=== PATIENT | male | born 1960 | race Caucasian/White ===

== ENCOUNTER 2018-05-16 12:33 | Outpatient (REF) | payer SELFPAY ==
[2018-05-16 22:27] LABS: Anion Gap 7.6 mmol/L (3-11); BUN 14 mg/dL (7-18); CO2 29.4 mmol/L (21.0-32.0); CREATININE 1.06 mg/dL (0.70-1.30); Calcium 9.4 mg/dL (8.5-10.1); Chloride 102 mmol/L (98-107); Cholesterol 235 mg/dL (50-200); Glucose 88 mg/dL (70-100); HDL Cholesterol 52 mg/dL (40-60); LDL CHOLESTEROL 169 mg/dL (<100); Potassium 4.8 mmol/L (3.5-5.1); Sodium 139 mmol/L (136-145); Triglyceride 120 mg/dL (30-150)
== END 2018-05-16 12:53 ==
LOC: NCHCN 12:33
PROVIDERS: PCP Internal Medicine; Visit Provider Internal Medicine
DX: R03.0 Elevated blood-pressure reading, without diagnosis of hypertension (principal); Z13.6 Encounter for screening for cardiovascular disorders
CPT/HCPCS: 80048; 80061; 83721

== ENCOUNTER 2019-07-10 09:14 | Outpatient (REF) | payer BC, SELFPAY ==
[2019-07-11 00:01] LABS: Anion Gap 10.5 mmol/L (3-11); BUN 17 mg/dL (7-18); CO2 27.5 mmol/L (21.0-32.0); CREATININE 1.04 mg/dL (0.70-1.30); Calculated LDL 81 mg/dL (<100); Chloride 102 mmol/L (98-107); Cholesterol 143 mg/dL (<200); Glucose 92 mg/dL (74-106); HDL Cholesterol 46 mg/dL (40-60); Potassium 4.3 mmol/L (3.5-5.1); Sodium 140 mmol/L (136-145); Triglyceride 83 mg/dL (<150)
== END 2019-07-10 09:34 ==
LOC: NCHCN 09:14
PROVIDERS: PCP Internal Medicine; Visit Provider Internal Medicine
DX: E78.5 Hyperlipidemia, unspecified (principal); I10 Essential (primary) hypertension
CPT/HCPCS: 80048; 80061

== ENCOUNTER 2019-10-18 17:37 | Outpatient (REF) | payer BC, SELFPAY ==
[2019-10-18 21:03] LABS: HCT 42.4 % (40.0-50.0); HGB 14.9 g/dL (13.5-17.5); Mean Corp. HGB Concentration 35.1 g/dL (32.0-36.0); Mean Corpuscular Hemoglobin 31.7 pg (27.0-33.0); Mean Corpuscular Volume 90.2 fL (80-95); Mean Platelet Volume 10.3 fL (8.0-11.0); Platelet Count 285 x1000/uL (130-400); White Blood Cell Count 8.39 k/cumm (4.4-10.8)
[2019-10-18 21:32] LABS: NT-proBNP 27 pg/mL (<300); TSH 2.11 uIU/mL (0.36-3.74)
== END 2019-10-18 17:57 ==
LOC: NCHCN 17:37
PROVIDERS: PCP Internal Medicine; Visit Provider Internal Medicine
DX: R06.09 Other forms of dyspnea (principal); I10 Essential (primary) hypertension
CPT/HCPCS: 85027; 83880; 84443

== ENCOUNTER 2020-08-03 08:03 | Outpatient (REF) | payer BC, SELFPAY ==
[2020-08-03 13:48] LABS: ALT 53 U/L (16-63); AST 44 U/L (15-37); Albumin 4.2 g/dL (3.4-5.0); Alkaline Phosphatase 87 U/L (46-116); Anion Gap 8.7 mmol/L (3-11); BUN 22 mg/dL (7-18); Bilirubin, Total 0.7 mg/dL (0.2-1.0); CO2 28.3 mmol/L (21.0-32.0); CREATININE 1.1 mg/dL (0.70-1.30); Calcium 9.1 mg/dL (8.5-10.1); Calculated LDL 82 mg/dL (<100); Chloride 103 mmol/L (98-107); Cholesterol 151 mg/dL (<200); Glucose 88 mg/dL (74-106); HDL Cholesterol 52 mg/dL (40-60); Potassium 4.2 mmol/L (3.5-5.1); Sodium 140 mmol/L (136-145); Total Protein 7.4 g/dL (6.4-8.2); Triglyceride 87 mg/dL (<150)
== END 2020-08-03 08:04 | disposition home or self-care (01) ==
LOC: NCHCN 08:03
PROVIDERS: PCP Internal Medicine; Visit Provider Internal Medicine
DX: I10 Essential (primary) hypertension (principal); E78.5 Hyperlipidemia, unspecified
CPT/HCPCS: 80053; 80061

== ENCOUNTER 2020-10-09 17:42 | Outpatient (REF) | payer BC, SELFPAY ==
[2020-10-09 21:21] LABS: ALT 38 U/L (16-63); AST 30 U/L (15-37); Albumin 4.1 g/dL (3.4-5.0); Alkaline Phosphatase 93 U/L (46-116); Bilirubin, Total 0.5 mg/dL (0.2-1.0); Total Protein 7.3 g/dL (6.4-8.2)
[2020-10-09 21:29] LABS: Bilirubin, Direct 0.1 mg/dL (0.0-0.2)
[2020-10-12 10:14] LABS: HBs Antibody, Quant <3.1 mIU/mL (See Note); Hepatitis B Surface Ab Negative (See Note)
[2020-10-12 10:32] LABS: Hepatitis B Surface Ag Negative (Negative)
[2020-10-12 10:36] LABS: Hepatitis C Ab w Rflx HCV PCR Negative (Negative)
== END 2020-10-09 17:43 | disposition home or self-care (01) ==
LOC: NCHCN 17:42
PROVIDERS: PCP Internal Medicine; Visit Provider Internal Medicine
DX: R79.89 Other specified abnormal findings of blood chemistry (principal)
CPT/HCPCS: 80076; 86706; 86803; 87340

== ENCOUNTER 2021-05-06 21:28 | Outpatient (REF) | payer BC, SELFPAY ==
[2021-05-08 19:25] LABS: COVID-19 RT-PCR UVMMC Result Indeterminate (Negative)
== END 2021-05-06 21:29 | disposition home or self-care (01) ==
LOC: NCHCN 21:28
PROVIDERS: PCP Internal Medicine; Visit Provider Internal Medicine
DX: Z20.822 Contact with and (suspected) exposure to COVID-19 (principal)
CPT/HCPCS: U0003

== ENCOUNTER 2021-08-11 13:29 | Outpatient (REF) | payer BC, SELFPAY ==
[2021-08-11 16:30] LABS: ALT 47 U/L (16-63); AST 44 U/L (15-37); Albumin 4.5 g/dL (3.4-5.0); Alkaline Phosphatase 83 U/L (46-116); Anion Gap 12.4 mmol/L (3-11); BUN 21 mg/dL (7-18); Bilirubin, Total 0.6 mg/dL (0.2-1.0); CO2 24.6 mmol/L (21.0-32.0); Calcium 9.1 mg/dL (8.5-10.1); Chloride 102 mmol/L (98-107); Glucose 90 mg/dL (74-106); Potassium 4.4 mmol/L (3.5-5.1); Sodium 139 mmol/L (136-145); Total Protein 7.6 g/dL (6.4-8.2)
[2021-08-11 22:24] LABS: PSA, Screening 0.3 ng/mL (<=4.5)
== END 2021-08-11 13:30 | disposition home or self-care (01) ==
LOC: NCHCN 13:29
PROVIDERS: PCP Internal Medicine; Visit Provider Internal Medicine
DX: I10 Essential (primary) hypertension (principal); Z12.5 Encounter for screening for malignant neoplasm of prostate
CPT/HCPCS: 80053; 84153

== ENCOUNTER 2022-05-04 09:02 | Outpatient (REF) | payer BC, SELFPAY ==
[2022-05-04 14:43] LABS: ALT 40 U/L (16-63); AST 38 U/L (15-37); Alkaline Phosphatase 85 U/L (46-116); Anion Gap 8.2 mmol/L (3-11); BUN 17 mg/dL (7-18); Bilirubin, Total 0.5 mg/dL (0.2-1.0); CO2 26.8 mmol/L (21.0-32.0); CREATININE 1.1 mg/dL (0.70-1.30); Calcium 8.9 mg/dL (8.5-10.1); Calculated LDL 109 mg/dL (<100); Chloride 104 mmol/L (98-107); Cholesterol 187 mg/dL (<200); Glucose 102 mg/dL (74-106); HDL Cholesterol 55 mg/dL (40-60); Potassium 4.2 mmol/L (3.5-5.1); Sodium 139 mmol/L (136-145); Total Protein 7.3 g/dL (6.4-8.2); Triglyceride 118 mg/dL (<150)
== END 2022-05-04 09:03 | disposition home or self-care (01) ==
LOC: NCHCN 09:02
PROVIDERS: PCP Internal Medicine; Visit Provider Internal Medicine
DX: E78.5 Hyperlipidemia, unspecified (principal); R79.89 Other specified abnormal findings of blood chemistry
CPT/HCPCS: 80053; 80061

== ENCOUNTER 2023-03-20 14:05 | Outpatient (REF) | payer BC, SELFPAY ==
[2023-03-20 14:55] LABS: HGB 14.5 g/dL (13.5-17.5); MCH 31.7 pg (27.0-33.0); MCHC 34.5 % (32.0-36.0); MCV 92 fL (80-95); MPV 10.3 fL (8.0-11.0); Platelet Count 258 10^3/uL (130-400); RBC 4.58 10^6/uL (4.36-5.78); RDW 13.1 % (11.8-14.1); RDW-SD 43.9 fL
[2023-03-20 15:02] LABS: Iron 112 ug/dL (65-175); Total Iron Binding Capacity 260 ug/dL (250-450); Transferrin Sat 43 % (20-55)
[2023-03-20 15:14] LABS: ALT 39 U/L (16-63); AST 44 U/L (15-37); Alkaline Phosphatase 83 U/L (46-116); Anion Gap 5.5 mmol/L (3-11); BUN 18 mg/dL (7-18); Bilirubin, Total 0.6 mg/dL (0.2-1.0); CO2 30.5 mmol/L (21.0-32.0); Calcium 9.5 mg/dL (8.5-10.1); Chloride 100 mmol/L (98-107); Estimated GFR 84.57 (mL/min/1.73m2); Ferritin 114 ng/mL (26-388); Glucose 98 mg/dL (74-106); Potassium 4.5 mmol/L (3.5-5.1); Sodium 136 mmol/L (136-145); Total Protein 7.2 g/dL (6.4-8.2)
== END 2023-03-20 14:06 | disposition home or self-care (01) ==
LOC: NCHCN 14:05
PROVIDERS: PCP Internal Medicine; Visit Provider Internal Medicine
DX: E78.5 Hyperlipidemia, unspecified (principal); I10 Essential (primary) hypertension; R79.89 Other specified abnormal findings of blood chemistry; E66.9 Obesity, unspecified
CPT/HCPCS: 80053; 85027; 82728; 83540; 83550

== ENCOUNTER 2024-04-03 13:39 | Outpatient (REF) | payer OTHER, SELFPAY ==
--- OUTSIDE RECORDS SUMMARY | 2024-04-03 13:42 | XMS_ITS | Encounter Summary ---
Author Organization [facility] Address [address] [place] [address] Care Team Providers Care Environmental Health Nurse Name Role Phone Jorje Barnett MD Primary Care Provider Miriam Ponce PIE TOPPER Unavailable [phone] Encounter Details Date Type Department Care Team (Late st Contact Info) Description 08/11/2021 Lab Requisition [facility] Pathology & Laboratory Medicine - [address] [address] Outr Resulting Lab, Provider Social History Tobacco Use Types Packs/Day Years Used Date Smoking Tobacco: Unknown Smokeless Tobacco: Former Chew Quit: 1986 Interpersonal Safety Answer Date Record ed Physically Hurt Never 12/08/2019 Verbally Threaten Not on file 12/08/2019 Sex and Gender Information Value Date Recorded Sex Assigned at Not on file Legal Sex Male 18:11 EST Gender Identity Male 03/11/2019 14:52 EST Sexual Orientation Not on file documented as of this encounter Plan of Treatment Not on file documented as of this encounter Procedures Procedure Name Priority Date/Time Associated Diagnosis Comments PSA TOTAL, DIAGNOSTIC Routine 08/11/2021 9:00 EDT documented in this encounter Results * PSA TOTAL, DIAGNOSTIC (08/11/2021 9:00 EDT) PSA 0.3 <=4.5 ng/mL 08/11/2021 22:19 EDT [facility] Blood VENOUS BLOOD / Unknown 08/11/2021 9:00 EDT 08/11/2021 21:20 EDT Narrative [facility] - 08/11/2021 22:19 EDT NOTE: Serum PSA concentration should not be interpreted as absolute evidence for the presence or absence of malignant disease. Assayed on Siemens ADVIA Liquid Enginesaur XPT using chemiluminescent technology.??Values obtained by using different assay methods cannot be used interchangeably. us Provider Outr Resulting Lab CHEMISTRY & BLOOD GA S ORDERABLES Final Result Performing Organization Address City/State/[facility] Co de Phone Number [facility] [address] [place] [address] documented in this encounter Visit Diagnoses Not on filedocumented in this encounter Care Teams Environmental Health Nurse Relationship Specialty Start Date End Date Jorje Barnett MD PCP - General 03/11/19 Miriam Sharif NP [address] [phone] Physician Sports Umpire Psychiatry 01/31/20 12/21/21 documented as of this encounter
--- OUTSIDE RECORDS SUMMARY | 2024-04-03 13:42 | XMS_ITS | Clinical Summary ---
Author Organization [facility] Address [address] [place] [address] Care Team Providers Care Die Casting Machine Setter Name Role Phone Jorje Barnett MD Primary Care Provider Unav ailable Allergies No known active allergies Medications oxygen-air delivery systems (HORIZON NASAL CPAP SYSTEM MISC) by misc (non-drug; combo route) route. Active atorvastatin (LIPITOR) 20 mg tablet TK 1 T PO D HS 0 Active Magnesium Oxide 420 mg tablet Take 420 mg by mouth 2 times daily. 180 Tab 4 0 Active busPIRone (BUSPAR) 15 mg tablet TAKE 1 TABLET BY MOUTH THREE TIMES A DAY. 270 Tab 0 Active Vitamin B Complex 100 #3-Herbs 100 mg tablet 1 tab(s) orally Daily 9 Active Yukxy-6-LGG-EPA- Fish Oil (FISH OIL) 1,000 mg (120 mg-180 mg) capsule 1 cap(s) orally BID 9 Active hydroCHLOROthiaz camilla (HYDRODIURIL) 25 mg tablet TK 1 T PO D 0 Active multivitamin (THERAGRAN) per tablet 1 tab(s) orally once a day Active amLODIPine (NORVASC) 5 mg tablet TK 1 T PO D 0 Active ARIPiprazole (ABILIFY) 10 mg tabletIndication s:Recurrent major depressive disorder, remission status unspecified (HCC-CMS) Take 1 Tab by mouth daily for 90 days. INCREASE 90 Tab 0 Active venlafaxine (EFFEXOR-XR) 150 mg XR capsule TAKE 1 CAPSULE DAILY 90 Cap 0 Active venlafaxine (EFFEXOR-XR) 75 mg XR capsule TAKE ONE CAPSULE BY MOUTH DAILY 30 Cap 0 Active Active Problems Problem Noted Date Diagnosed Date Recurrent major depressive disorder ([facility]) Generalized anxiety disorder 06/26/2019 Difficulty with family 06/26/2019 Anxiety 03/26/2019 Family History Medical History Relation Comments No Known Brother Alcohol Abuse Sister 1 Mental Illness Sister 1 Alcohol Abuse Sister 2 Relation Status Comments Brother Sister 1 Sister 2 Social History Tobacco Use Types Packs/Day Years Used Date Smoking Tobacco: Unknown Smokeless Tobacco: Former Chew Quit: 1986 Interpersonal Safety Answer Date Record ed Physically Hurt Never 12/08/2019 Verbally Threaten Not on file 12/08/2019 Sex and Gender Information Value Date Recorded Sex Assigned at Not on file Legal Sex Male 18:11 EST Gender Identity Male 03/11/2019 14:52 EST Sexual Orientation Not on file Obstetrics History Plan of Treatment Health Maintenance Due Date Last Done Comments COVID-19 Vaccine (2023-25 season) 2024 RSV Immunization ( o r 60+ Years) (1 - 1-dose 75+ series) 12/01/2034 Hepatitis C Screen Completed 10/09/2020 Procedures Procedure Name Priority Date/Time Associated Diagnosis Comments HEPATITIS C AB W REFLEX TO HCV RNA BY PCR Routine 10/09/2020 16:20 EDT from Last 3 Months or Most Recently Relevant to Health Maintenance Results * HEPATITIS C AB W REFLEX TO HCV RNA BY PCR (10/09/2020 16:20 EDT) Hep C Antibody Negative Negative 10/12/2020 10:32 EDT [facility] Blood VENOUS BLOOD / Unknown 10/09/2020 16:20 EDT 10/11/2020 15:48 EDT us Provider Outr Resulting Lab CHEMISTRY & BLOOD GA S ORDERABLES Final Result [facility] [address] [place] [address] from Last 3 Months or Most Recently Relevant to Health Maintenance Care Teams Die Casting Machine Setter Relationship Specialty Start Date End Date Jorje Barnett MD PCP - General 03/11/19
--- OUTSIDE RECORDS SUMMARY | 2024-04-03 13:42 | XMS_ITS | Encounter Summary ---
Author Organization [facility] Address [address] [place] [address] Care Team Providers Care Tape Calender Name Role Phone Jorje Barnett MD Primary Care Provider Miriam Ponce BUDGET DIRECTOR Unavailable Encounter Details Date Type Department Care Team (Late st Contact Info) Description 05/07/2021 Lab Requisition [facility] Pathology & Laboratory Medicine - [address] [address] Outr Resulting Lab, Provider Social History Tobacco [...] Procedure Name Priority Date/Time Associated Diagnosis Comments ZZCOVID-19 TEST [facility] PCR Today 05/06/2021 13:15 EST COVID-19 TESTING Routine 05/06/2021 13:1 5 EST documented in this encounter Results * COVID-19 TEST [facility] PCR (05/06/2021 13:15 EST) Swab 05/06/2021 13:1 5 EST 05/07/2021 20:34 EST us Provider Outr Resulting Lab MICROBIOLOGY - GENER AL ORDERABLES Final Result Performing Organization Address City/[facility]/ZIP Co de Phone Number [facility] [address] [place] [address] * COVID-19 TESTING (05/06/2021 13:15 EST) COVID-19 rt-PCR Result Indeterminate Negative 05/08/2021 19:19 EST [facility] Comment:This is an appended report. These results have been appended to a previously preliminary verified report. Performing Lab [place] 05/08/2021 19:19 EST [facility] Swab 05/06/2021 13:1 5 EST 05/07/2021 20:34 EST us Provider Outr Resulting Lab MICROBIOLOGY - GENER AL ORDERABLES Final Result Performing Organization Address [facility] Co de Phone Number [facility] [address] [place] [address] documented in this encounter Visit Diagnoses Not on filedocumented in this encounter Care Teams Tape Calender Relationship Specialty Start Date End Date Jorje Barnett MD PCP - General 03/11/19 Miriam Sharif NP [address] [place] [phone] Physician Fitter Helper Psychiatry 01/31/20 12/21/21 documented as of this encounter
--- OUTSIDE RECORDS SUMMARY | 2024-04-03 13:42 | XMS_ITS | Referral Summary ---
Author Organization [facility] Address [address] [place] [address] Care Team Providers Care Records Management Analyst Name Role Phone Jorje Barnett MD Primary [...] tablet 1 tab(s) orally Daily 9 Active Njyre-0-TCY-EPA- Fish Oil (FISH OIL) 1,000 mg (120 [...] Date Diagnosed Date Recurrent major depressive disorder (HCC-[facility]) Generalized anxiety disorder 06/26/2019 Difficulty with family 06/26/2019 Anxiety 03/26/2019 Social History Tobacco Use Types Packs/Day Years Used Date Smoking Tobacco: Unknown Smokeless Tobacco: Former Chew Quit: 1986 Interpersonal Safety Answer Date Record ed Physically Hurt Never 12/08/2019 Verbally Threaten Not on file 12/08/2019 Sex and Gender Information Value Date Recorded Sex Assigned at Not on file Legal Sex Male 18:11 EST Gender Identity Male 03/11/2019 14:52 EST Sexual Orientation Not on file Plan of Treatment Not on file Procedures Procedure Name Priority Date/Time Associated Diagnosis Comments HEPATITIS C AB W REFLEX TO HCV RNA BY PCR Routine 10/09/2020 16:20 EDT from Last 3 Months or Most Recently Relevant to Health Maintenance Results * HEPATITIS C AB W REFLEX TO HCV RNA BY PCR (10/09/2020 16:20 EDT) Hep C Antibody Negative Negative 10/12/2020 10:32 EDT [facility] Blood VENOUS BLOOD / Unknown 10/09/2020 16:20 EDT 10/11/2020 15:48 EDT us Provider Outr Resulting Lab CHEMISTRY & BLOOD GA S ORDERABLES Final Result [facility] [address] [place] [id number] from Last 3 Months or Most Recently Relevant to Health Maintenance Care Teams Records Management Analyst Relationship Specialty Start Date End Date Jorje Barnett MD PCP - General 03/11/19
--- OUTSIDE RECORDS SUMMARY | 2024-04-03 13:42 | XMS_ITS | Encounter Summary ---
Author Organization [facility] Address [address] [place] [address] Care Team Providers Care Bracelet And Brooch Maker Name Role Phone Jorje Barnett MD Primary Care Provider Miriam Ponce PROGRAM THERAPIST Unavailable [phone] Encounter Details Date Type Department Care Team (Late st Contact Info) Description 10/10/2020 Lab Requisition [facility] Pathology & Laboratory Medicine - [address] [address] Outr Resulting Lab, Provider Social History Tobacco [...] RNA BY PCR Routine 10/09/2020 16:20 EDT HEPATITIS B SURFACE ANTIBODY Routine 10/09/2020 16:20 EDT HEPATITIS B SURFACE ANTIGEN Routine 10/09/2020 16:20 EDT documented in this encounter Results * HEPATITIS B SURFACE ANTIBODY (10/09/2020 16:20 EDT) Hep B Surface Ab, Quantitative <3.1 See Note mIU/mL 10/12/2020 10:09 EDT [facility] Comment: Reference Range for Hep B Surface Ab, Quant: Positive: >= 10.0 mIU/mL Negative: ??< 10.0 mIU/mL Patient is presumed to not be immune to infection with Hepatitis B Virus. Hep B Surface Ab, Qualitative Negative See Note 10/12/2020 10:09 EDT [facility] Comment: Reference Range for Hep B Surface Ab, Qual: Unvaccinated: ??Negative Vaccinated: ??Positive Blood VENOUS BLOOD / Unknown 10/09/2020 16:20 EDT 10/11/2020 15:48 EDT us Provider Outr Resulting Lab CHEMISTRY & BLOOD GA S ORDERABLES Final Result Performing Organization Address [facility] Co de Phone Number [facility] [address] [place] [address] * HEPATITIS B SURFACE ANTIGEN (10/09/2020 16:20 EDT) Hep B Surface Ag Negative Negative 10/12/2020 10:28 EDT [facility] Blood VENOUS BLOOD / Unknown 10/09/2020 16:20 EDT 10/11/2020 15:48 EDT us Provider Outr Resulting Lab CHEMISTRY & BLOOD GA S ORDERABLES Final Result Performing Organization Address City/[facility]/ZIP Co de Phone Number [facility] [address] [place] [address] * HEPATITIS C AB W REFLEX TO HCV RNA BY PCR (10/09/2020 16:20 EDT) Hep C Antibody Negative Negative 10/12/2020 10:32 EDT [facility] Blood VENOUS BLOOD / Unknown 10/09/2020 16:20 EDT 10/11/2020 15:48 EDT us Provider Outr Resulting Lab CHEMISTRY & BLOOD GA S ORDERABLES Final Result [facility] [address] [place] [address] documented in this encounter Visit Diagnoses Not on filedocumented in this encounter Care Teams Bracelet And Brooch Maker Relationship Specialty Start Date End Date Jorje Barnett MD PCP - General 03/11/19 Miriam Sharif NP [address] [phone] Physician Application Integration Specialist Psychiatry 01/31/20 12/21/21 documented as of this encounter
--- OUTSIDE RECORDS SUMMARY | 2024-04-03 13:42 | XMS_ITS | Encounter Summary ---
Author Organization [facility] Address [address] [place] [address] Care Team Providers Care Sales And Catering Coordinator Name Role Phone Jorje Barnett MD Primary Care Provider Unav ailable Miriam Sharif CHEMICAL PATHOLOGIST Unavailable [phone] Reason for Visit * Reason Comments Other Encounter Details Date Type Department Care Team (Late st Contact Info) Description 07/05/2020 Refill [facility] Family Psychiatry [address] [place] [address] Miriam Sharif NP 82 [facility] [address] [place] [phone] Other Social History Tobacco Use Types Packs/Day Years [...] on file documented as of this encounter Visit Diagnoses Not on filedocumented in this encounter Care Teams Sales And Catering Coordinator Relationship Specialty Start Date End Date Jorje Barnett MD PCP - General 03/11/19 Miriam Sharif NP 82 [facility] [address] [place] [phone] Physician Executive Community Planning Psychiatry 01/31/20 12/21/21 documented as of this encounter
--- OUTSIDE RECORDS SUMMARY | 2024-04-03 13:43 | XMS_ITS | Encounter Summary ---
Author Organization [facility] Address [address] [place] [address] Care Team Providers Care Environment Artist Name Role Phone Jorje Barnett MD Primary Care Provider Unav ailable Reason for Visit * Reason Onset Date Comments Medications Refill 11/26/2019 buspar Encounter Details Date Type Department Care Team (Late st Contact Info) Description 11/26/2019 Refill [facility] Family Psychiatry [address] [place], [place] [phone] Riya Urrutia RN Medications Refill (buspar) Social History Tobacco Use Types Packs/Day Years [...] on file documented as of this encounter Miscellaneous Notes * Telephone Encounter - Sonja Boateng - 12/05/2019 1049 EDT 12/05/19 LM to schedule with Miriam * Telephone Encounter - Sonja Boateng - 11/29/2019 0829 EDT 11/28/19 spoke to pt's . Pt to call back to schedule appt. * Telephone Encounter - Riya Urrutia RN - 11/26/2019 0833 EDT Tele visit 09/25/19 No future visits scheduled buspirone 15 mg, take 1 tab by mouth 3 times daily Last filled 09/17/19 documented in this encounter Plan of Treatment Not on file documented as of this encounter Visit Diagnoses Not on filedocumented in this encounter Care Teams Environment Artist Relationship Specialty Start Date End Date Jorje Barnett MD PCP - General 03/11/19 documented as of this encounter
--- OUTSIDE RECORDS SUMMARY | 2024-04-03 13:43 | XMS_ITS | Encounter Summary ---
Author Organization [facility] Address [address] [place] [address] Care Team Providers Care Master In Chancery Name Role Phone Jorje Barnett MD Primary Care Provider Unav ailable Reason for Visit * Reason Comments Other Encounter Details Date Type Department Care Team (Late st Contact Info) Description 10/19/2019 Refill [facility] Family Psychiatry [address] [place] [address] Miriam Sharif NP 82 [facility] [address] [place] [phone] Other Social History Tobacco Use Types Packs/Day Years Used Date Smoking Tobacco: Unknown Smokeless Tobacco: Former Chew Quit: 1986 Sex and Gender Information Value Date Recorded Sex Assigned at Not on file Legal Sex Male 18:11 EST Gender Identity Male 03/11/2019 14:52 EST Sexual Orientation Not on file documented as of this encounter Ordered Prescriptions Prescription Sig Dispense Quantity Refills Last Filled Start Date End Date venlafaxine (EFFEXOR-XR) 150 mg XR capsule TAKE 1 CAPSULE DAILY 90 Cap 10/21/2019 documented in this encounter Miscellaneous Notes * Telephone Encounter - Riya Urrutia RN - 10/21/2019 1110 EDT Tele visit 09/25/19 Scheduled for 11/05/19 Venlafaxine ER 150 mg , take 1 cap by mouth daily Last filled 08/13/19 patient of Miriam's Approved and escribed by Gregg Foreman [employer] documented in this encounter Plan of Treatment Not on file documented as of this encounter Visit Diagnoses Not on filedocumented in this encounter Discontinued Medications Medication Sig Discontinue Reason Start Date End Da te venlafaxine (EFFEXOR-XR) 150 mg XR capsule Take 1 Cap by mouth daily for 90 days. 08/13/2019 10/21/2019 documented as of this encounter Care Teams Master In Chancery Relationship Specialty Start Date End Date Jorje Barnett MD PCP - General 03/11/19 documented as of this encounter
--- OUTSIDE RECORDS SUMMARY | 2024-04-03 13:43 | XMS_ITS | Encounter Summary ---
Author Organization [facility] Address [address] [place] [address] Care Team Providers Care Speech Assistant Name Role Phone Jorje Barnett MD Primary Care Provider Unav ailable Reason for Visit * Reason Comments Medication Management Encounter Details Date Type Department Care Team (Late st Contact Info) Description 06/26/2019 17:30 EST Office Visit [facility] Family Psychiatry [address] [place] [address] Miriam Sharif, FER 82 [facility] [address] [place] [phone] Recurrent major depressive disorder, remission status unspecified (HCC-CMS) (Primary Dx); Generalized anxiety disorder; Difficulty with family Social History Tobacco Use Types Packs/Day Years Used Date Smoking Tobacco: Never Smokeless Tobacco: Never Sex and Gender Information Value Date Recorded Sex Assigned at Not on file Legal Sex Male 18:11 EST Gender Identity Male 03/11/2019 14:52 EST Sexual Orientation Not on file documented as of this encounter Ordered Prescriptions Prescription Sig Dispense Quantity Refills Last Filled Start Date End Date Magnesium Oxide 420 mg tablet Take 420 mg by mouth 2 times daily. 180 Tab 4 06/26/2019 ARIPiprazole (ABILIFY) 5 mg tabletIndications:R ecurrent major depressive disorder, remission status unspecified (HCC-CMS) Take 1 Tab by mouth daily for 30 days. 30 Tab 06/26/2019 07/22/2019 documented in this encounter Miscellaneous Notes * Addendum Note - Miriam Sharif, IVAN - 06/26/2019 1730 ESTAddended by: MIRIAM SHARIF on: 06/26/2019 18:56 Modules accepted: Orders documented in this encounter Plan of Treatment Not on file documented as of this encounter Visit Diagnoses Diagnosis Recurrent major depressive disorder, remission status unspecified ([facility])- Primary Generalized anxiety disorder Difficulty with family Unspecified family circumstance documented in this encounter Historical Medications * This list may reflect changes made after this encounter. atorvastatin (LIPITOR) 20 mg tablet TK 1 T PO D HS 06/03/2019 amLODIPine (NORVASC) 10 mg tablet TK 1 T PO D 06/17/2019 09/24/2019 added in this encounter Care Teams Speech Assistant Relationship Specialty Start Date End Date Jorje Barnett MD PCP - General 03/11/19 documented as of this encounter
--- OUTSIDE RECORDS SUMMARY | 2024-04-03 13:43 | XMS_ITS | Encounter Summary ---
Author Organization [facility] Address [address] [place] [address] Care Team Providers Care Forging Machine Hand Name Role Phone Jorje Barnett MD Primary Care Provider Unav ailable Miriam Sharif KILN LABOURER Unavailable [phone] Reason for Visit * Reason Comments Other Encounter Details Date Type Department Care Team (Late st Contact Info) Description 02/15/2020 Refill [facility] Family Psychiatry [address] [place] [address] Miriam Sharif, FER 82 [facility] [address] [place] [phone] Other Social History Tobacco Use Types Packs/Day [...] Filled Start Date End Date venlafaxine (EFFEXOR-XR) 75 mg XR capsule TAKE ONE CAPSULE BY MOUTH DAILY 30 Cap 02/17/2020 documented in this encounter Miscellaneous Notes * Telephone Encounter - Dolores Ramachandran RN - 02/17/2020 0813 EDT Venlafaxine CR 75mg cap, take 1 cap daily with a 150mg Last OV canceled Nothing future scheduled [facility] documented in this encounter Plan of Treatment Not on file documented as of this encounter Visit Diagnoses Not on filedocumented in this encounter Discontinued Medications Medication Sig Discontinue Reason Start Date End Da te venlafaxine (EFFEXOR-XR) 75 mg XR capsule TAKE 1 CAPSULE BY MOUTH ONCE DAILY WITH 150MG CAPSULE 12/30/2019 02/17/2020 documented as of this encounter Care Teams Forging Machine Hand Relationship Specialty Start Date End Date Jorje Barnett MD PCP - General 03/11/19 Miriam Sharif NP [address] [phone] Physician Seat Trimmer Psychiatry 01/31/20 12/21/21 documented as of this encounter
--- OUTSIDE RECORDS SUMMARY | 2024-04-03 13:43 | XMS_ITS | Encounter Summary ---
Author Organization [facility] Address [address] [place] [address] Care Team Providers Care Manual Arts Therapy Teacher Name Role Phone Jorje Barnett MD Primary Care Provider Unav ailable Encounter Details Date Type Department Care Team ([facility] st Contact Info) Description 05/27/2019 Orders Only [facility] Family Psychiatry [address] [place], [place] [phone] Miriam Sharif NP 82 [facility] [address] [place] [phone] Social History Tobacco Use Types Packs/Day Years Used Date Smoking Tobacco: Never Smokeless Tobacco: Never Sex and Gender Information Value Date Recorded Sex Assigned at Not on file Legal Sex Male 18:11 EST Gender Identity Male 03/11/2019 14:52 EST Sexual Orientation Not on file documented as of this encounter Ordered Prescriptions Prescription Sig Dispense Quantity Refills Last Filled Start Date End Date venlafaxine (EFFEXOR XR) 75 mg XR capsule Take 1 Cap by mouth daily for 30 days. 30 Cap 05/27/2019 09/25/2019 venlafaxine (EFFEXOR XR) 150 mg XR capsule Take 1 Cap by mouth daily for 30 days. 30 Cap 05/27/2019 07/15/2019 documented in this encounter Plan of Treatment Not on file documented as of this encounter Visit Diagnoses Not on filedocumented in this encounter Discontinued Medications Medication Sig Discontinue Reason Start Date End Da te venlafaxine (EFFEXOR XR) 150 mg XR capsule Take 150 mg by mouth daily. Reorder 05/27/2019 venlafaxine (EFFEXOR XR) 75 mg XR capsule Take 75 mg by mouth daily. Reorder 05/27/2019 documented as of this encounter Care Teams Manual Arts Therapy Teacher Relationship Specialty Start Date End Date Jorje Barnett MD PCP - General 03/11/19 documented as of this encounter
--- OUTSIDE RECORDS SUMMARY | 2024-04-03 13:43 | XMS_ITS | Encounter Summary ---
Author Organization [facility] Address [address] [place] [address] Care Team Providers Care Oven Laborer Name Role Phone Jorje Barnett MD Primary Care Provider Unav ailable Miriam Sharif DEVELOPER ADVISOR Unavailable Reason for Visit * Reason Comments Other Encounter Details Date Type Department Care Team (Late st Contact Info) Description 07/21/2019 Refill [facility] [address] [place] [address] Miriam Sharif NP 82 [facility] [address] [place] [phone] Other Social History Tobacco Use Types Packs/Day Years Used Date Smoking Tobacco: Never Smokeless Tobacco: Never Sex and Gender Information Value Date Recorded Sex Assigned at Not on file Legal Sex Male 18:11 EST Gender Identity Male 03/11/2019 14:52 EST Sexual Orientation Not on file documented as of this encounter Ordered Prescriptions Prescription Sig Dispense Quantity Refills Last Filled Start Date End Date ARIPiprazole (ABILIFY) 5 mg tabletIndications: Recurrent major depressive disorder, remission status unspecified ([facility]) TAKE 1 TABLET BY MOUTH ONCE DAILY 30 Tab 07/22/2019 08/27/2019 documented in this encounter Miscellaneous Notes * Telephone Encounter - Maureen Recinos - 07/21/2019 1818 EDT Miriam's patient documented in this encounter Plan of Treatment Not on file documented as of this encounter Visit Diagnoses Diagnosis Recurrent major depressive disorder, remission status unspecified ([facility]) documented in this encounter Discontinued Medications Medication Sig Discontinue Reason Start Date End Da te ARIPiprazole (ABILIFY) 5 mg tabletIndications:Recurre nt major depressive disorder, remission status unspecified (HCC-CMS) Take 1 Tab by mouth daily for 30 days. 06/26/2019 07/22/2019 documented as of this encounter Care Teams Oven Laborer Relationship Specialty Start Date End Date Jorje Barnett MD PCP - General 03/11/19 Miriam Sharif NP [address] [phone] Physician Peripheral Vascular Tech Psychiatry 01/31/20 12/21/21 documented as of this encounter
--- OUTSIDE RECORDS SUMMARY | 2024-04-03 13:43 | XMS_ITS | Encounter Summary ---
Author Organization [facility] Address [address] [place] [address] Care Team Providers Care Web Marketing Strategist Name Role Phone Jorje Barnett MD Primary Care Provider Unav ailable Miriam Sharif COMMUNICATIONS MANAGER Unavailable [phone] Reason for Visit * Reason Comments Other Encounter Details Date Type Department Care Team ([facility] st Contact Info) Description 09/17/2019 Refill [facility] [address] [place] [address] Miriam Sharif NP 82 [facility] [address] [place] [phone] Other Social History Tobacco Use Types Packs/Day Years Used Date Smoking Tobacco: Never Smokeless Tobacco: Never Sex and Gender Information Value Date Recorded Sex Assigned at Not on file Legal Sex Male 18:11 EST Gender Identity Male 03/11/2019 14:52 EST Sexual Orientation Not on file documented as of this encounter Ordered Prescriptions Prescription Sig Dispense Quantity Refills Last Filled Start Date End Date busPIRone (BUSPAR) 15 mg tablet TAKE 1 TABLET BY MOUTH THREE TIMES A DAY. 270 Tab 09/17/2019 documented in this encounter Miscellaneous Notes * Telephone Encounter - Maureen Recinos - 09/17/2019 0942 EDT Miriam's patient documented in this encounter Plan of Treatment Not on file documented as of this encounter Visit Diagnoses Not on filedocumented in this encounter Discontinued Medications Medication Sig Discontinue Reason Start Date End Da te busPIRone (BUSPAR) 15 mg tablet Take 30 mg by mouth 3 times daily as needed. 09/17/2019 documented as of this encounter Care Teams Web Marketing Strategist Relationship Specialty Start Date End Date Jorje Barnett MD PCP - General 03/11/19 Miriam Sharif NP [address] [phone] Physician Sole Stapler Welt Psychiatry 01/31/20 12/21/21 documented as of this encounter
--- OUTSIDE RECORDS SUMMARY | 2024-04-03 13:43 | XMS_ITS | Encounter Summary ---
Author Organization [facility] Address [address] [place] [address] Care Team Providers Care Feather Baler Name Role Phone Jorje Barnett MD Primary Care Provider Unav ailable Encounter Details Date Type Department Care Team (Late st Contact Info) Description 09/24/2019 Abstract [facility] [address] [place] [address] Tristen Brooks PA-C [address] [place] [address] [address] [place] [address] Social History Tobacco Use Types Packs/Day Years [...] Discontinue Reason Start Date End Da te amLODIPine (NORVASC) 10 mg tablet TK 1 T PO D Duplicate order 06/17/2019 09/24/2019 documented as of this encounter Historical Medications * This list may reflect changes made after this encounter. amLODIPine (NORVASC) 5 mg tablet TK 1 T PO D 08/19/2019 multivitamin (THERAGRAN) per tablet 1 tab(s) orally once a day hydroCHLOROthiazi de (HYDRODIURIL) 25 mg tablet TK 1 T PO D 08/26/2019 Jayfs-8-EQR-EPA-F alejandro Oil (FISH OIL) 1,000 mg (120 mg-180 mg) capsule 1 cap(s) orally BID 08/30/2018 Vitamin B Complex 100 #3-Herbs 100 mg tablet 1 tab(s) orally Daily 08/30/2018 added in this encounter Care Teams Feather Baler Relationship Specialty Start Date End Date Jorje Barnett MD PCP - General 03/11/19 documented as of this encounter
--- OUTSIDE RECORDS SUMMARY | 2024-04-03 13:43 | XMS_ITS | Encounter Summary ---
Author Organization [facility] Address [address] [place] [address] Care Team Providers Care Perinatology Physician Name Role Phone Jorje Barnett MD Primary Care Provider Unav ailable Reason for Visit * Reason Onset Date Comments Medications Refill 08/13/2019 venlafaxine Encounter Details Date Type Department Care Team ([facility] st Contact Info) Description 08/13/2019 Telephone [facility] Family Psychiatry [address] [address] Miriam Sharif NP 82 [facility] [address] [place] [phone] Medications Refill (venlafaxine ) Social History Tobacco Use Types Packs/Day Years [...] Date venlafaxine (EFFEXOR-XR) 150 mg XR capsule Take 1 Cap by mouth daily for 90 days. 90 Cap 08/13/2019 10/21/2019 documented in this encounter Miscellaneous Notes * Telephone Encounter - Shwetha Abraham - 08/13/2019 0857 EDT VENLAFAXINE 150 MG - Send to [facility] in [place] documented in this encounter Plan of Treatment Not on file documented as of this encounter Visit Diagnoses Not on filedocumented in this encounter Discontinued Medications Medication Sig Discontinue Reason Start Date End Da te venlafaxine (EFFEXOR-XR) 150 mg XR capsule TAKE 1 CAPSULA BY MOUTH EVERY DAY Reorder 07/15/2019 08/13/2019 documented as of this encounter Care Teams Perinatology Physician Relationship Specialty Start Date End Date Jorje Barnett MD PCP - General 03/11/19 documented as of this encounter
--- OUTSIDE RECORDS SUMMARY | 2024-04-03 13:43 | XMS_ITS | Encounter Summary ---
Author Organization [facility] Address [address] [place] [address] Care Team Providers Care Eyeglass Inspector Name Role Phone Jorje Barnett MD Primary Care Provider Unav ailable Reason for Visit * Reason Comments Follow-up Encounter Details Date Type Department Care Team ([facility] st Contact Info) Description 09/25/2019 17:30 EDT Telemedicine [facility] Family Psychiatry [address] [place] [address] Miriam Sharif NP 82 [facility] [address] [place] [phone] Recurrent major depressive disorder, remission status unspecified (HCC-CMS) (Primary Dx) Social History Tobacco Use Types Packs/Day Years [...] Filled Start Date End Date ARIPiprazole (ABILIFY) 10 mg tabletIndications: Recurrent major depressive disorder, remission status unspecified (HCC-CMS) Take 1 Tab by mouth daily for 90 days. INCREASE 90 Tab 09/25/2019 venlafaxine (EFFEXOR XR) 75 mg XR capsule Take 1 Cap by mouth daily for 90 days. Take WITH 150mg cap 90 Cap 09/25/2019 0 documented in this encounter Plan of Treatment Not on file documented as of this encounter Visit Diagnoses Diagnosis Recurrent major depressive disorder, remission status unspecified (HCC-CMS)- Primary documented in this encounter Discontinued Medications Medication Sig Discontinue Reason Start Date End Da te ARIPiprazole (ABILIFY) 5 mg tabletIndications:Recurre nt major depressive disorder, remission status unspecified ([facility]) TAKE 1 TABLET BY MOUTH DAILY 09/23/2019 09/25/2019 venlafaxine (EFFEXOR XR) 75 mg XR capsule Take 1 Cap by mouth daily for 30 days. Reorder 05/27/2019 09/25/2019 documented as of this encounter Care Teams Eyeglass Inspector Relationship Specialty Start Date End Date Jorje Barnett MD PCP - General 03/11/19 documented as of this encounter
--- OUTSIDE RECORDS SUMMARY | 2024-04-03 13:43 | XMS_ITS | Encounter Summary ---
Author Organization [facility] Address [address] [place] [address] Care Team Providers Care Toddler Teacher Name Role Phone Jorje Barnett MD Primary Care Provider Unav ailable Reason for Visit * Reason Onset Date Comments Other 07/23/2019 check in Encounter Details Date Type Department Care Team ([facility] st Contact Info) Description 07/23/2019 Telephone [facility] [place] [address] [place] [address] Miriam Sharif NP 82 [facility] [address] [place] [phone] Other (check in ) Social History Tobacco Use Types Packs/Day Years Used Date Smoking Tobacco: Never Smokeless Tobacco: Never Sex and Gender Information Value Date Recorded Sex Assigned at Not on file Legal Sex Male 18:11 EST Gender Identity Male 03/11/2019 14:52 EST Sexual Orientation Not on file documented as of this encounter Miscellaneous Notes * This document contains information received from the source organization and may not represent a complete record from that organization. * Restricted notes were excluded * Telephone Encounter - Shwetha Abraham - 07/23/2019 0749 EDT Pt called and he is doing well with the current med change ,he has cancelled his appt this week dueto the outbreak , he will call for another appt when things settle down documented in this encounter Plan of Treatment Not on file documented as of this encounter Visit Diagnoses Not on filedocumented in this encounter Care Teams Toddler Teacher Relationship Specialty Start Date End Date Jorje Barnett MD PCP - General 03/11/19 documented as of this encounter
--- OUTSIDE RECORDS SUMMARY | 2024-04-03 13:43 | XMS_ITS | Encounter Summary ---
Author Organization [facility] Address [address] [place] [address] Care Team Providers Care Type Inspector Name Role Phone Jorje Barnett MD Primary Care Provider Unav ailable Miriam Sharif HIRED HAND Unavailable [phone] Reason for Visit * Reason Onset Date Comments Medications Refill 01/29/2020 refill Encounter Details Date Type Department Care Team (Late st Contact Info) Description 01/29/2020 Telephone [facility] Psych[facility]ry [address] [place] [address] Miriam Sharif, HIRED HAND 82 [facility] [address] [place] [phone] Medications Refill (refill) Social History Tobacco Use Types Packs/Day Years [...] notes were excluded * Telephone Encounter - Maureen Recinos - 03/02/2020 1221 EDT Spoke with patient's , Abby. Abby stated patient will be followed by his PCP. * Telephone Encounter - Maureen Recinos - 02/10/2020 1117 EDT 02/09 11:18 Left Message to schedule follow up appointment. * Telephone Encounter - Maureen Recinos - 01/29/2020 0950 EDT Last visit 09/24 Pharmacy request refill Venlafaxine 150 MG documented in this encounter Plan of Treatment Not on file documented as of this encounter Visit Diagnoses Not on filedocumented in this encounter Care Teams Type Inspector Relationship Specialty Start Date End Date Jorje Barnett MD PCP - General 03/11/19 Miriam Sharif NP [address] [phone] Physician Operating Room Technician Psychiatry 01/31/20 12/21/21 documented as of this encounter
--- OUTSIDE RECORDS SUMMARY | 2024-04-03 13:43 | XMS_ITS | Encounter Summary ---
Author Organization [facility] Address [address] [place] [address] Care Team Providers Care Broodmare Foreman Name Role Phone Jorje Barnett MD Primary Care Provider Unav ailable Reason for Visit * Reason Comments Other Encounter Details Date Type Department Care Team (Late st Contact Info) Description 09/23/2019 Refill [facility] Family Psychiatry [address] [place] [address] Miriam Sharif NP 82 [facility] [address] [place] [phone] Other Social History Tobacco Use Types Packs/Day [...] Recurrent major depressive disorder, remission status unspecified ([facility]) TAKE 1 TABLET BY MOUTH DAILY 30 Tab 09/23/2019 09/25/2019 documented in this encounter Miscellaneous Notes * Telephone Encounter - Riya Urrutia RN - 09/23/2019 1024 EDT Last visit 07/24/19, next scheduled 09/25/19 abilify 5 mg 1 tab daily Last filled 08/27/19 Miriam s patient Escribed to pharmacy by Morris Foreman APRN documented in this encounter Plan of Treatment Not on file documented as of this encounter Visit Diagnoses Diagnosis Recurrent major depressive disorder, remission status unspecified (HCC-CMS)- Primary documented in this encounter Discontinued Medications Medication Sig Discontinue Reason Start Date End Da te ARIPiprazole (ABILIFY) 5 mg tabletIndications:Recurre nt major depressive disorder, remission status unspecified (HCC-CMS) Take 1 Tab by mouth daily. 08/27/2019 09/23/2019 documented as of this encounter Care Teams Broodmare Foreman Relationship Specialty Start Date End Date Jorje Barnett MD PCP - General 03/11/19 documented as of this encounter
--- OUTSIDE RECORDS SUMMARY | 2024-04-03 13:43 | XMS_ITS | Encounter Summary ---
Author Organization [facility] Address [address] [place] [address] Care Team Providers Care Turret Lathe Operator Name Role Phone Jorje Barnett MD Primary Care Provider Unav ailable Reason for Visit * Reason Onset Date Comments Medications Refill 08/26/2019 Encounter Details Date Type Department Care Team (Late st Contact Info) Description 08/26/2019 Telephone [facility] [place] Psych[facility]ry [address] [place] [address] Miriam Sharif NP 82 [facility] [address] [place] [phone] Medications Refill Social History Tobacco Use Types Packs/Day Years [...] Date End Date ARIPiprazole (ABILIFY) 5 mg tabletIndications:R ecurrent major depressive disorder, remission status unspecified ([facility]) Take 1 Tab by mouth daily. 30 Tab 08/27/2019 09/23/2019 documented in this encounter Miscellaneous Notes * This document contains information received from the source organization and may not represent a complete record from that organization. * Restricted notes were excluded * Telephone Encounter - Shwetha Abraham - 09/16/2019 0816 EDT 09/25/2019 appt * Telephone Encounter - Sonja Boateng - 08/27/2019 1449 EDT LM with for pt to call back to schedule an appt with Miriam * Telephone Encounter - Shwetha Abraham - 08/26/2019 1135 EDT Aripiprazole 5 mg- send to pharmacy 07/24/2019 last appt documented in this encounter Plan of Treatment Not on file documented as of this encounter Visit Diagnoses Diagnosis Recurrent major depressive disorder, remission status unspecified (HCC-CMS)- Primary documented in this encounter Discontinued Medications Medication Sig Discontinue Reason Start Date End Da te ARIPiprazole (ABILIFY) 5 mg tabletIndications:Recurre nt major depressive disorder, remission status unspecified (HCC-CMS) TAKE 1 TABLET BY MOUTH ONCE DAILY Reorder 07/22/2019 08/27/2019 documented as of this encounter Care Teams Turret Lathe Operator Relationship Specialty Start Date End Date Jorje Barnett MD PCP - General 03/11/19 documented as of this encounter
--- OUTSIDE RECORDS SUMMARY | 2024-04-03 13:43 | XMS_ITS | Encounter Summary ---
Author Organization [facility] Address [address] [place] [address] Care Team Providers Care Foundry Process Engineer Name Role Phone Jorje Barnett MD Primary Care Provider Unav ailable Miriam Sharif PHARMACY SERVICE ASSOCIATE Unavailable Reason for Visit * Reason Comments Other Encounter Details Date Type Department Care Team (Late st Contact Info) Description 07/14/2019 Refill [facility] [place] [address] [place] [address] Miriam Sharif NP 82 [facility] [address] [place] [phone] Other Social History Tobacco Use Types Packs/Day [...] TAKE 1 CAPSULA BY MOUTH EVERY DAY 30 Cap 07/15/2019 0 documented in this encounter Miscellaneous Notes * Telephone Encounter - Maureen Recinos - 07/15/2019 0826 EDT Miriam's patient documented in this encounter Plan of Treatment Not on file documented as of this encounter Visit Diagnoses Not on filedocumented in this encounter Discontinued Medications Medication Sig Discontinue Reason Start Date End Da te venlafaxine (EFFEXOR XR) 150 mg XR capsule Take 1 Cap by mouth daily for 30 days. 05/27/2019 07/15/2019 documented as of this encounter Care Teams Foundry Process Engineer Relationship Specialty Start Date End Date Jorje Barnett MD PCP - General 03/11/19 Miriam Sharif NP [address] [phone] Physician Capsule Filler Psychiatry 01/31/20 12/21/21 documented as of this encounter
--- OUTSIDE RECORDS SUMMARY | 2024-04-03 13:43 | XMS_ITS | Encounter Summary ---
Author Organization [facility] Address [address] [place] [address] Care Team Providers Care Slasher Tender Name Role Phone Jorje Barnett MD Primary Care Provider Unav ailable Reason for Visit * Reason Comments Other Encounter Details Date Type Department Care Team ([facility] st Contact Info) Description 12/30/2019 Refill [facility] Family Psychiatry [address] [place] [address] Miriam Sharif NP 82 [facility] [address] [place] [phone] Other Social History Tobacco Use Types Packs/Day [...] BY MOUTH ONCE DAILY WITH 150MG CAPSULE 30 Cap 12/30/2019 0 documented in this encounter Miscellaneous Notes * Telephone Encounter - Riya Urrutia RN - 12/30/2019 1003 EDT Tele visit 09/25/19 No future visits scheduled Venlafaxine ER 75 mg take 1 tab by mouth daily with 150 mg tab' last filled 05/20/20 patient of Trac[facility] Approved and escribed by Syd Grullon APRN documented in this encounter Plan of Treatment Not on file documented as of this encounter Visit Diagnoses Not on filedocumented in this encounter Discontinued Medications Medication Sig Discontinue Reason Start Date End Da te venlafaxine (EFFEXOR XR) 75 mg XR capsule Take 1 Cap by mouth daily for 90 days. Take WITH 150mg cap 09/25/2019 12/30/2019 documented as of this encounter Care Teams Slasher Tender Relationship Specialty Start Date End Date Jorje Barnett MD PCP - General 03/11/19 documented as of this encounter
--- OUTSIDE RECORDS SUMMARY | 2024-04-03 13:44 | XMS_ITS | Encounter Summary ---
Author Organization [facility] Address [address] [place] [address] Care Team Providers Care Mechanics Supervisor Name Role Phone Jorje Barnett MD Primary Care Provider Unav ailable Reason for Visit * Reason Comments Depression Encounter Details Date Type Department Care Team (Late st Contact Info) Description 03/26/2019 16:00 EST Office Visit [facility] Family Psychiatry [address] [place] [address] Miriam Sharif NP 82 [facility] [address] [place] [phone] Recurrent major depressive disorder, remission status unspecified ([facility]) (Primary Dx); Anxiety Social History Tobacco Use Types Packs/Day Years [...] Recurrent major depressive disorder, remission status unspecified ([facility])- Primary Anxiety Anxiety state, unspecified documented in this encounter Historical Medications * This list may reflect changes made after this encounter. oxygen-air delivery systems (HORIZON NASAL CPAP SYSTEM MISC) by misc (non-drug; combo route) route. busPIRone (BUSPAR) 15 mg tablet Take 30 mg by mouth 3 times daily as needed. 09/17/2019 venlafaxine (EFFEXOR XR) 75 mg XR capsule Take 75 mg by mouth daily. 05/27/2019 venlafaxine (EFFEXOR XR) 150 mg XR capsule Take 150 mg by mouth daily. 05/27/2019 added in this encounter Care Teams Mechanics Supervisor Relationship Specialty Start Date End Date Jorje Barnett MD PCP - General 03/11/19 documented as of this encounter
--- OUTSIDE RECORDS SUMMARY | 2024-04-03 13:44 | XMS_ITS ---
Author Organization Unknown Address [address] [place] [phone] Phone Care Team Providers Care Delivery Of Shopping News Name Role Phone KRISTIAN KHLOE Koehler Attending Unavailable VIRGINIA Martinez Primary Unavailable Immunization Immunization Date Status Additional Notes Code Code System Tdap 12/17/2022 Completed 115 CVX Social History Type Status Start Date End Date Code Code Syst em Smoking History Never smoker (Never Smoked) 413336390 SNOMED CT Sex Male Vital Signs Vital Sign Value Unit Ogle Value Ogle Unit Date/Time Recent/Initial? Code Code System Systolic Blood Pressure 119 mm[Hg] 05/19/2021 09:16 Initial 8480-6 LOINC Diastolic Blood Pressure 72 mm[Hg] 05/19/2021 09:16 Initial 8462-4 LOINC O2 Saturation 96 % 2021 09:16 Initial 35777- 5 LOINC Respiration 13 /min 05/19/19 09:16 Initial 9279-1 LOINC Temperature 36.0 Briana 96.8 F 05/19/19 09:16 Initial 8310-5 LOINC Assessment You had the following problems:[facility] Hospital Discharge Instructions Should you have any questions prior to discharge, please contact a member of your healthcare team. If you have left the hospital and have any questions, please contact your primary care physician. Reason For Referral No Data Found Procedures Procedure Name Date Status Code Code Syste m Colsc Flx w/Rmvl Of Tumor Po lyp Lesion Snare Tq 05/19/2021 completed 29165 CPT Problems Problem Start Date Resolved Date Status Code Code System HTN active 85525941 SNOMED-CT HLD active 02781531 SNOMED-CT GATITO active 42713630 SNOMED-CT Allergies and Adverse Reactions Allergy Substance Reaction Severity Start Date Concern Status Co de Code System No Known Drug Allergies Active 986190683 SNOMED-CT Plan of Treatment US ABDOMEN LIMITED 1 ORGAN 05/20/2022 PRE-OP COVID-19 TESTING 05/17/2021 Encounters Encounter Diagnosis Start Date Code Code Sys tem Encounter for screening for malignant neoplasm of colo n 05/19/2021 SNOMED-CT Personal Care Team Section Performer Name Performer Role Active Date Inactive Da te
--- OUTSIDE RECORDS SUMMARY | 2024-04-03 13:44 | XMS_ITS | Encounter Summary ---
Author Organization [facility] Address [address] [place] [address] Care Team Providers Care Chemical Engraver Name Role Phone Jorje Barnett MD Primary Care Provider Unav ailable Reason for Visit * Reason Comments Medications Refill venlafaxine Encounter Details Date Type Department Care Team (Late st Contact Info) Description 05/27/2019 Telephone [facility] - [facility] Family Psychiatry [address] [place] [address] Morris Foreman NP [address] [facility] [address] [place] [phone] Medications Refill (venlafaxine ) Social History Tobacco [...] * Telephone Encounter - Shwetha Abraham - 05/28/2019 1226 EST Left message to call and schedule an appt * Telephone Encounter - Miriam Sharif APRN - 05/27/20192038 EST Sent 30 days. plz have him schedule. * Telephone Encounter - Shwetha Abraham - 05/27/2019 0805 EST Venlafaxine 150 mg - send to [facility];'s in [place] documented in this encounter Plan of Treatment Not on file documented as of this encounter Visit Diagnoses Not on filedocumented in this encounter Care Teams Chemical Engraver Relationship Specialty Start Date End Date Jorje Barnett MD PCP - General 03/11/19 documented as of this encounter
--- OUTSIDE RECORDS SUMMARY | 2024-04-03 13:46 | XMS_ITS ---
Author Organization Unknown Address [address] [place] [phone] Phone Care Team Providers Care Arboreal Scientist Name Role Phone ALEJANDRO Merchant Attending Unavailable JOAO Iglesias [facility] Unavailable VIRGINIA Martinez Primary Unavailable UNLISTED PROVIDER - REQUESTED Xhandoff Un available Immunization Immunization Date Status Additional Notes Code Code System Tdap 12/17/2022 Completed 115 CVX Social History Type Status Start Date End Date Code Code Syst em Smoking History Never smoker (Never Smoked) 359785651 SNOMED CT Sex Male Vital Signs Vital Sign Value Unit Wells Value Wells Unit Date/Time Recent/Initial? Code Code System Body Mass Index 33.00 kg/m2 12/24/2022 10:51 Initial 11591 -5 LOINC Systolic Blood Pressure 119 mm[Hg] 12/24/2022 10:51 Initial 8480- 6 LOINC Diastolic Blood Pressure 76 mm[Hg] 12/24/2022 10:51 Initial 8462- 4 LOINC Body Surface Area 2.27 m2 12/24/2022 10:51 Initial 3140- 1 LOINC Height 177.800 0 cm 70.00 in 12/24/2022 10:51 Initial 8302- 2 LOINC O2 Saturation 97 % 2022 10:51 Initial 25167 -5 LOINC Pulse 68.0 /min 12/24/2022 10:51 Initial 8867- 4 LOINC Respiration 16 /min 12/25/19 10:51 Initial 9279- 1 LOINC Temperature 36.6 Briana 97.9 F 12/25/19 10:51 Initial 8310- 5 LOINC Weight 104.33 kg 230.00 lbs 12/24/2022 10:51 Initial 99419 -7 LOINC Assessment You had the following problems:[facility] Hospital Discharge Instructions Should you have any questions prior to discharge, please contact a member of your healthcare team. If you have left the hospital and have any questions, please contact your primary care physician. Reason For Referral No Data Found Problems Problem Start Date Resolved Date Status Code Code System HTN active 71169480 SNOMED-CT HLD active 24373353 SNOMED-CT GATITO active 55465491 SNOMED-CT Allergies and Adverse Reactions Allergy Substance Reaction Severity Start Date Concern Status Co de Code System No Known Drug Allergies Active 359824090 SNOMED-CT Plan of Treatment US ABDOMEN LIMITED 1 ORGAN 05/20/2022 PRE-OP COVID-19 TESTING 05/17/2021 Encounters Encounter Diagnosis Start Date Code Code Sys tem Removal of suture 12/24/2022 88001818 SNOMED-CT Personal Care Team Section Performer Name Performer Role Active Date Inactive Da te
--- OUTSIDE RECORDS SUMMARY | 2024-04-03 13:46 | XMS_ITS ---
Author Organization Unknown Address [address] [place] [phone] Phone Care Team Providers Care Merchandise Shopper Name Role Phone ALVARO HURLEY Registered Nurse Unavailable CLAY Gomez Attending Unavailable KARINA Malagon ER Unavailable VIRGINIA Martinez Primary Unavailable UNLISTED PROVIDER - REQUESTED Xhandoff Un available Immunization Immunization Date Status Additional Notes Code Code System Tdap 12/17/2022 Completed 115 CVX Social History Type Status Start Date End Date Code Code Syst em Smoking History Never smoker (Never Smoked) 680703443 SNOMED CT Sex Male Vital Signs Vital Sign Value Unit Faulk Value Faulk Unit Date/Time Recent/Initial? Code Code System Body Mass Index 33.00 kg/m2 12/17/2022 15:30 Initial 96089 -5 LOINC Systolic Blood Pressure 111 mm[Hg] 12/17/2022 15:30 Initial 8480- 6 LOINC Diastolic Blood Pressure 83 mm[Hg] 12/17/2022 15:30 Initial 8462- 4 LOINC Body Surface Area 2.27 m2 12/17/2022 15:30 Initial 3140- 1 LOINC Height 177.800 0 cm 70.00 in 12/17/2022 15:30 Initial 8302- 2 LOINC O2 Saturation 97 % 2022 15:30 Initial 54292 -5 LOINC Pulse 62.0 /min 12/17/2022 15:30 Initial 8867- 4 LOINC Respiration 16 /min 12/18/19 15:30 Initial 9279- 1 LOINC Temperature 36.6 Briana 97.9 F 12/18/19 15:30 Initial 8310- 5 LOINC Weight 104.33 kg 230.00 lbs 12/17/2022 15:30 Initial 11376 -7 LOINC Assessment You had the following problems:[facility] Hospital Discharge Instructions Should you have any questions prior to discharge, please contact a member of your healthcare team. If you have left the hospital and have any questions, please contact your primary care physician. Reason For Referral No Data Found Problems Problem Start Date Resolved Date Status Code Code System HTN active 54345028 SNOMED-CT HLD active 22121146 SNOMED-CT GATITO active 89628986 SNOMED-CT Allergies and Adverse Reactions Allergy Substance Reaction Severity Start Date Concern Status Co de Code System No Known Drug Allergies Active 778369338 SNOMED-CT Plan of Treatment US ABDOMEN LIMITED 1 ORGAN 05/20/2022 PRE-OP COVID-19 TESTING 05/17/2021 Encounters Encounter Diagnosis Start Date Code Code Sys tem Laceration without foreign b felisha of left wrist, initial encounter 12/17/2022 SNOMED-CT Personal Care Team Section Performer Name Performer Role Active Date Inactive Da te
[2024-04-03 14:38] LABS: HCT 45.3 % (40.0-50.0); HGB 15.3 g/dL (13.5-17.5); MCH 32.1 pg (27.0-33.0); MCHC 33.8 % (32.0-36.0); MCV 95 fL (80-95); MPV 10.4 fL (8.0-11.0); Platelet Count 306 10^3/uL (130-400); RBC 4.77 10^6/uL (4.36-5.78); RDW 13.1 % (11.8-14.1); RDW-SD 46.1 fL
[2024-04-03 14:52] LABS: Hemoglobin A1C 5.3 % (<5.7)
[2024-04-03 15:05] LABS: ALT 32 U/L (16-63); AST 31 U/L (15-37); Albumin 4.1 g/dL (3.4-5.0); Alkaline Phosphatase 101 U/L (46-116); Anion Gap 2.9 mmol/L (3-11); BUN 21 mg/dL (7-18); Bilirubin, Total 0.63 mg/dL (0.2-1.0); CO2 32.1 mmol/L (21.0-32.0); Calcium 9.5 mg/dL (8.5-10.1); Calculated LDL 87 mg/dL (<100); Chloride 101 mmol/L (98-107); Cholesterol 162 mg/dL (<200); Estimated GFR 84.05 (mL/min/1.73m2); Glucose 96 mg/dL (74-106); HDL Cholesterol 62 mg/dL (40-60); Potassium 4.6 mmol/L (3.5-5.1); Sodium 136 mmol/L (136-145); TSH 2.06 uIU/mL (0.36-3.74); Total Protein 7.9 g/dL (6.4-8.2); Triglyceride 66 mg/dL (<150)
== END 2024-04-03 13:40 | disposition home or self-care (01) ==
LOC: NCHCN 13:39
PROVIDERS: PCP Internal Medicine; Visit Provider Internal Medicine
DX: R73.03 Prediabetes (principal); R74.01 Elevation of levels of liver transaminase levels; E66.9 Obesity, unspecified; R53.83 Other fatigue
CPT/HCPCS: 80053; 80061; 85027; 83036; 84443